=== PATIENT | male | born 1970 | race Two or more races ===

== ENCOUNTER → 2024-02-06 | Outpatient (CLI) | payer BC, SELFPAY ==
[2024-02-10 07:04] LABS: Fecal Globin Result NOT DETECTED (NOT DETECTED)
== END | disposition home or self-care (01) ==
LOC: SLDO 15:45
PROVIDERS: PCP Family Medicine; Referring Provider Family Medicine; Visit Provider Family Medicine
DX: Z12.11 Encounter for screening for malignant neoplasm of colon (principal); Z12.12 Encounter for screening for malignant neoplasm of rectum
CPT/HCPCS: 82274; G0328

== ENCOUNTER → 2024-12-09 | Outpatient (CLI) | payer OTHER, SELFPAY ==
--- NOTE | 2024-12-09 12:33 | XR_ITS ---
EXAMINATION: PA lateral chest 2 views TECHNIQUE: Upright PA lateral chest 2 views Date and time: December 09, 2024, 1309 hours INDICATIONS: Preop surgery FINDINGS: 7 mm pulmonary nodule in the lingular segment on the lateral view Normal heart size No pneumonia or pulmonary edema IMPRESSION: Consider CT chest without contrast follow-up to confirm 7 mm pulmonary nodule in the lingular segment left upper lobe
[2024-12-09 13:20] LABS: Misc Send Out* See Sep Rpt
[2024-12-09 13:31] LABS: Collection Type, Urine Clean Catch; Squamous Epithelial Cell,Urine 0 /hpf (0-5)
--- NOTE | 2024-12-09 13:49 | EKG_ITS ---
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
[2024-12-09 13:52] LABS: Basophils # (Auto) 0.1 Thou/mm3 (0.0-0.2); Basophils % (Auto) 1 % (0-2.5); Eosinophils # (Auto) 0.2 Thou/mm3 (0.0-0.5); Eosinophils % (Auto) 2 % (0-10); Hematocrit 44.4 % (41.0-53.0); Hemoglobin 14.9 g/dL (13.5-16.0); Immature Granulocytes Auto 0.02 Thou/mm3 (0.00-0.00); Lymphocytes # (Auto) 2.4 Thou/mm3 (1.0-4.8); Lymphocytes % (Auto) 32 % (10-50); Mean Corpuscular HGB Conc 33.6 g/dl (31.0-37.0); Mean Corpuscular Hemoglobin 30.3 pg (25.0-35.0); Mean Corpuscular Volume 90 fL (80-100); Monocytes # (Auto) 0.8 Thou/mm3 (0.0-0.8); Monocytes % (Auto) 11 % (0-12); Neutrophils # (Auto) 4.0 Thou/mm3 (1.8-7.7); Neutrophils % (Auto) 53 % (37-80); Nucleated Red Blood Cell # 0.00 Thou/mm3 (0.00-0.00); Nucleated Red Blood Cell % 0 /100 WBC (0); Platelet Count 212 Thou/mm3 (140-440); RDW Standard Deviation 45.1 fL (35.1-43.9); Red Blood Count 4.92 Miln/mm3 (4.50-5.90); White Blood Count 7.5 Thou/mm3 (3.8-10.6)
[2024-12-09 13:57] LABS: Bilirubin,Urine Negative (Negative); Blood,Urine 1+ (Negative); Clarity,Urine Clear (Clear/Hazy); Color,Urine Lt-Yellow (Lt Yel-Yel); Glucose, Urine Negative (Negative); Ketones,Urine Negative (Negative); Leukocyte Esterase,Urine Negative (Negative); Nitrite,Urine Negative (Negative); PH,Urine 6.5 (5.0-7.0); Protein,Urine Negative (Neg - Trace); RBC,Urine 11 /hpf (0-3); Specific Gravity,Urine 1.020 (1.001-1.035); Urobilinogen,Urine Negative mg/dL (0.0-1.0); WBC,Urine 1 /hpf (0-5)
[2024-12-09 14:01] LABS: INR 1.0 (0.9-1.3); Partial Thromboplastin Time 29.3 Seconds (22.0-36.0); Prothrombin Time 10.2 Seconds (9.0-12.2)
[2024-12-09 14:10] LABS: Glucose Estimated Average 105 mg/dL (80-131); Hemoglobin A1C 5.3 % Hgb (4.8-6.0)
== END | disposition home or self-care (01) ==
PROVIDERS: PCP Orthopaedic Surgery; Referring Provider Orthopaedic Surgery; Visit Provider Orthopaedic Surgery
DX: R91.8 Other nonspecific abnormal finding of lung field (principal); Z01.818 Encounter for other preprocedural examination; S83.231D Complex tear of medial meniscus, current injury, right knee, subsequent encounter; X58.XXXD Exposure to other specified factors, subsequent encounter
CPT/HCPCS: 36415; 71046; 81001; 83036; 85025; 85610; 85730; 93005

== ENCOUNTER → 2024-12-29 | Outpatient (CLI) | payer OTHER, SELFPAY ==
[2024-12-29 14:44] LABS: Collection Type, Urine Clean Catch; Squamous Epithelial Cell,Urine 0 /hpf (0-5)
[2024-12-29 15:11] LABS: Bilirubin,Urine Negative (Negative); Blood,Urine 1+ (Negative); Clarity,Urine Clear (Clear/Hazy); Color,Urine Lt-Yellow (Lt Yel-Yel); Glucose, Urine Negative (Negative); Ketones,Urine Negative (Negative); Leukocyte Esterase,Urine Negative (Negative); Nitrite,Urine Negative (Negative); PH,Urine 6.0 (5.0-7.0); Protein,Urine Negative (Neg - Trace); RBC,Urine 13 /hpf (0-3); Specific Gravity,Urine 1.026 (1.001-1.035); Urobilinogen,Urine Negative mg/dL (0.0-1.0); WBC,Urine 1 /hpf (0-5)
[2024-12-29 15:24] LABS: Alanine Aminotransferase 33 U/L (10-49); Albumin, Serum 4.8 gm/dL (3.5-5.0); Albumin/Globulin Ratio 2.1 (1.2-2.2); Alkaline Phosphatase 115 U/L (46-116); Anion Gap 12 (7-16); Aspartate Amino Transferase 27 U/L (0-34); BUN/Creatinine Ratio 10 Ratio (12-20); Bilirubin,Total 0.3 mg/dL (0.3-1.2); Blood Urea Nitrogen 10 mg/dL (9-23); Calcium 9.6 mg/dL (8.3-10.6); Calcium (Corrected) 9.6 mg/dL (8.5-10.1); Carbon Dioxide 26.0 mMol/L (20.0-31.0); Chloride 104 mMol/L (98-107); Creatinine (Component) 1.0 mg/dL (0.6-1.3); Globulin 2.3 gm/dL (2.3-3.5); Glucose 104 mg/dL (74-106); Osmolality,Calculated 282 (275-295); Potassium 4.2 mMol/L (3.4-5.1); Sodium 142 mMol/L (136-145); Total Protein 7.1 gm/dL (5.7-8.2); eGFR > 60 See Note
== END | disposition home or self-care (01) ==
LOC: COPL 14:28
PROVIDERS: Referring Provider Orthopaedic Surgery; Visit Provider Orthopaedic Surgery
DX: Z79.1 Long term (current) use of non-steroidal anti-inflammatories (NSAID) (principal)
CPT/HCPCS: 36415; 80053; 81001

== ENCOUNTER 2025-02-23 15:40 | Emergency (ER) | payer OTHER, SELFPAY ==
[2025-02-23 16:06] VITALS: BP 152/91; PULSE 85; RESP 20; TEMP 36.9; O2SAT 98; BMI 27.5
--- NOTE | 2025-02-23 16:13 | XR_ITS ---
Examination: Duplex scan of the lower extremity, unilateral right Date and time of exam: February 23, 2025, 1704 hours INDICATIONS: Right leg pain and swelling post knee replacement February 01, 2025, worse the last 3 days Technique: Duplex scan of the extremity veins using B-mode/grayscale imaging and Doppler spectral analysis and color flow Attention is directed to internal echogenicity, compression and augmentation involving these veins, color flow assessment, spectral analysis Findings: Major deep venous structures in the extremity demonstrate normal course and caliber. There is no evidence of deep vein thrombosis. Normal color flow and spectral analysis Impression: Negative for DVT..
--- NOTE | 2025-02-23 16:14 | PD.EDRME ---
Rapid Medical Screening Exam [facility] Arrival date/time: 02/23/25 15:40 This is a case of 54-year-old male with history of knee surgery 3 weeks ago came in in the emergency room due to right lower leg pain patient states that he just came with his orthopedic surgeon where they did a manipulation on the right lower leg since then the patient is complaining of pain on the posterior right leg denies any numbness weakness or tingling sensation Chief Complaint: Extremity Problem,Nontraumatic Time Seen by Provider: 02/23/25 16:11 Vital signs: Vital Signs Temperature 98.5 F 02/23/25 16:06 Pulse Rate 85 02/23/25 16:06 Respiratory Rate 20 02/23/25 16:06 Blood Pressure 152/91 H 02/23/25 16:06 Pulse Oximetry (%) 98 02/23/25 16:06 Oxygen Delivery Method Room Air 02/23/25 16:06 Exam: Moderate tenderness posterior part of the right leg no crepitation no deformity no redness no swelling patient have surgical scar on the anterior right knee Clinical Impression: Right leg pain
[2025-02-23 17:20] LABS: Basophils # (Auto) 0.1 Thou/mm3 (0.0-0.2); Basophils % (Auto) 1 % (0-2.5); Eosinophils # (Auto) 0.3 Thou/mm3 (0.0-0.5); Eosinophils % (Auto) 3 % (0-10); Hematocrit 37.2 % (41.0-53.0); Hemoglobin 12.1 g/dL (13.5-16.0); Immature Granulocytes Auto 0.04 Thou/mm3 (0.00-0.00); Lymphocytes # (Auto) 2.3 Thou/mm3 (1.0-4.8); Lymphocytes % (Auto) 30 % (10-50); Mean Corpuscular HGB Conc 32.5 g/dl (31.0-37.0); Mean Corpuscular Hemoglobin 29.4 pg (25.0-35.0); Mean Corpuscular Volume 90 fL (80-100); Monocytes # (Auto) 0.7 Thou/mm3 (0.0-0.8); Monocytes % (Auto) 9 % (0-12); Neutrophils # (Auto) 4.5 Thou/mm3 (1.8-7.7); Neutrophils % (Auto) 57 % (37-80); Nucleated Red Blood Cell # 0.00 Thou/mm3 (0.00-0.00); Nucleated Red Blood Cell % 0 /100 WBC (0); Platelet Count 390 Thou/mm3 (140-440); RDW Standard Deviation 44.5 fL (35.1-43.9); Red Blood Count 4.12 Miln/mm3 (4.50-5.90); White Blood Count 7.9 Thou/mm3 (3.8-10.6)
[2025-02-23 17:30] LABS: Alanine Aminotransferase 40 U/L (10-49); Albumin, Serum 4.6 gm/dL (3.5-5.0); Albumin/Globulin Ratio 1.4 (1.2-2.2); Alkaline Phosphatase 151 U/L (46-116); Anion Gap 10 (7-16); Aspartate Amino Transferase 28 U/L (0-34); BUN/Creatinine Ratio 12 Ratio (12-20); Bilirubin,Total 0.3 mg/dL (0.3-1.2); Blood Urea Nitrogen 11 mg/dL (9-23); Calcium 9.4 mg/dL (8.3-10.6); Calcium (Corrected) 9.4 mg/dL (8.5-10.1); Carbon Dioxide 28.8 mMol/L (20.0-31.0); Chloride 101 mMol/L (98-107); Creatine Kinase 66 U/L (34-171); Creatinine (Component) 0.9 mg/dL (0.6-1.3); Estimated Creatinine Clearance 94.6 mL/min (>60); Globulin 3.4 gm/dL (2.3-3.5); Glucose 99 mg/dL (74-106); Osmolality,Calculated 278 (275-295); Potassium 3.9 mMol/L (3.4-5.1); Sodium 140 mMol/L (136-145); Total Protein 8.0 gm/dL (5.7-8.2); eGFR > 60 See Note
[2025-02-23 20:29] VITALS: BP 136/82; PULSE 77; RESP 17; TEMP 37.1; O2SAT 99
--- NOTE | 2025-02-23 20:40 | PD.EDADULT ---
ED General RME/HPI General Chief complaint: Extremity Problem,Nontraumatic Stated complaint: sent by Dr. Alfredo for right swollen calf Time Seen by Provider: 02/23/25 16:11 Arrival date/time: 02/23/25 15:40 CC: Swelling of the right lower leg HPI onset approximately 4 to 5 days ago after starting to wear compression stockings this status post knee replacement or is beginning physical therapy. The patient states she has had some calf tenderness denies shortness of breath difficulty breathing headache nausea vomiting or diarrhea no fever at home. Patient has had 2 sessions of physical therapy post knee replacement of the right knee. RME / HPI RME / HPI narrative: 02/23/25 15:40 This is a case of 54-year-old male with history of knee surgery 3 weeks ago came in in the emergency room due to right lower leg pain patient states that he just came with his orthopedic surgeon where they did a manipulation on the right lower leg since then the patient is complaining of pain on the posterior right leg denies any numbness weakness or tingling sensation Exam: Moderate tenderness posterior part of the right leg no crepitation no deformity no redness no swelling patient have surgical scar on the anterior right knee Impression: Right leg pain Related Data Allergies Allergy/AdvReac Type Severity Reaction Status Date / Time No Known Allergies Allergy Verified 02/23/25 15:46 Review of Systems Review of Systems Narrative Review of Systems: GEN: No fever, no chills, no weight loss EYES: No discharge, no visual changes, no pain HEENT: No ear pain, no congestion, no sore throat PULM: No shortness of breath, no cough, no congestion CV: No chest pain, no dyspnea on exertion, no palpitations GI: No nausea, no vomiting, no diarrhea, no pain, no constipation : No frequency, no urgency, no dysuria MUSC/SKEL: No joint pain, no back pain SKIN: No rash PSYCH: No hallucinations, no depression HEME/LYMPH: No easy bleeding or bruising tendencies NEURO: No weakness, no headache Past Medical History Social History SMOKING STATUS: Never smoker ED Exam Narrative Physical exam: [General: Anxious but not in any acute distress Head normocephalic HEENT: Within acceptable limits Neck is supple nontender Chest equal chest rise nontender to palpation Respiratory: Clear to auscultation no wheezes crackles or rubs CV: Rate rhythm is regular no murmurs rubs or clicks Abdomen is distended secondary to body habitus soft nontender no masses positive bowel sounds all 4 quadrants Back: No CVA tenderness no spinous process tenderness from cervical spine thoracic and lumbar spine Skin: Vertical surgical scar of the right knee is clean dry and intact no surrounding erythema edema no dehiscence, no tenderness with palpation not warm to touch. Otherwise skin is intact no petechiae rash induration ulceration or crepitus Extremities: Right lower extremity, mild nonpitting edema with tenderness to the calf of the right lower leg. Range of motion of the knee somewhat gingerly by the patient secondary to recovery pain. Full range of motion of the ankles and toes cap refill less than 2 seconds neurosensory intact. Moving all other extremities against resistance cap refill less than 2 seconds neurosensory intact Neuro: Awake alert oriented x3 Glascow coma 15 no focal deficits] Course Course Course Narrative: I suspect after placing the compression stocking on the foot and ankle secondary to foot edema the edema is now transition to proximal to the compression stocking resulting in edematous calf. Patient advised to keep the patient leg elevated when at rest above the level of the heart. And complete all physical therapy as instructed. Any signs of infection such as redness pus or swelling they are to return the emergency room for reevaluation. Quality Measures none Orders Category Date Time Status US venous doppler LE RT Stat Exams 02/23/25 16:13 Completed CBC Stat Lab 02/23/25 16:59 Completed Comprehensive Metabolic Panel Stat Lab 02/23/25 16:59 Completed Creatine Kinase Stat Lab 02/23/25 16:59 Completed Vital Signs Vital signs: Vital Signs Temperature 98.5 F 02/23/25 16:06 Pulse Rate 85 02/23/25 16:06 Respiratory Rate 20 02/23/25 16:06 Blood Pressure 152/91 H 02/23/25 16:06 Pulse Oximetry (%) 98 02/23/25 16:06 Oxygen Delivery Method Room Air 02/23/25 16:06 Discharge Plan Plan Patient Disposition: HOME (Self Care) Patient condition on transfer: Stable Prescriptions/Referrals Referrals: Tnoy Alfredo MD [Primary Care Provider, Orthopedics] - In 1 week Problem List Clinical Impression: Edema of right lower leg Patient/Caregiver Discharge Instructions Other Activity Instructions:: The edema in your lower leg is probably secondary to placing compressions stocking on your foot where the anemia was previously. There is no clot in your leg and you have no signs of infection. Follow-up with physical therapy as instructed by your surgeon. If there are any signs of infection such as redness pus or swelling return immediately to the emergency room for reevaluation. When at rest always elevate your leg above the level of your heart. Print Language: Syrian Stand Alone Forms: Ladonna Award Info., Work/School Release, Patient Portal Info Letter BUNNY/BRISA Supervising Physician MEKHI Supervising Physician: Venancio Reynolds ENP [facility] Clinical Information Provided by: patient Medical Records reviewed [facility] Meds/Rx considered, not ordered None Labs/Rad/Tests considered, not ordered None Chronic Illness/Social Conditions Explain: Recent right knee replacement EKG EKG not done Labs Labs: interpreted by pr Lab(s) Interpretation(s): CBC shows no acute leukocytosis and H&H of 12.1 and 37.2 respectively no thrombocytopenia CMP shows no significant electrolyte imbalances renal impairment transaminitis or T. bili elevation Imaging Imaging interpretation: interpreted by me Imaging Interpretation(s): Ultrasound of the leg is negative for DVT.
== END 2025-02-23 20:54 | disposition home or self-care (01) ==
PROVIDERS: Nurse Practitioner Family; Emergency Provider Family Medicine; PCP Orthopaedic Surgery
DX: R60.0 Localized edema (principal); M79.661 Pain in right lower leg; Z96.651 Presence of right artificial knee joint
CPT/HCPCS: 36415; 80053; 82550; 85025; 93971; 99283